=== PATIENT | male | born 1995 | race Caucasian/White ===

== ENCOUNTER 2016-09-24 22:52 | Emergency (ER) | payer MEDICAID, OTHER ==
[~2016-09-24] VITALS: Ht 165.1 cm; Wt 63.5 kg
[~2016-09-24 22:52] MED LIST: AZIT250T6 PO; HYDR-1189 PO
[2016-09-24 23:39] VITALS: BP_SYST 122
--- NOTE | 2016-09-25 01:24 | NUR ---
Patient left without being seen. No further treatment provided
--- NOTE | 2016-09-25 01:24 | NUR ---
CALLED IN, NO ANSWER
== END 2016-09-25 01:24 | disposition left against medical advice (07) ==
LOC: SED 22:52
DX: L29.9 Pruritus, unspecified (principal); Z53.21 Procedure and treatment not carried out due to patient leaving prior to being seen by health care provider

== ENCOUNTER 2018-10-02 06:55 | Emergency (ER) | payer MEDICAID ==
[~2018-10-02] VITALS: Ht 165.1 cm; Wt 67.1 kg
[~2018-10-02 06:55] MED LIST changes: +AZIT-62 PO; -AZIT250T6 PO
[2018-10-02 07:17] VITALS: BP_SYST 121
--- NOTE | 2018-10-02 07:20 | NUR ---
Patient to ER bed 7 to gown for evaluation. Side rails up. Report given to BEBA Brushresistor winder.
--- NOTE | 2018-10-02 07:35 | NUR ---
PT LYING ON BED PLYING CELLPHONE, CO SORENESS ON RIGHT ARMPIT AFTER WORKING OUT. NO FURTHER CO. AO X 3. NO ACUTE DISTRESS.
--- NOTE | 2018-10-02 07:40 | NUR ---
ER at bedside examining patient.
[2018-10-02 08:25] LABS: BASOPHILS # (AUTO) 0.1 K/uL (0.0-0.2); BASOPHILS % (AUTO) 0.9 % (0.0-2.0); EOSINOPHILS % (AUTO) 15.4 % (0.0-4.0); HEMATOCRIT 45.5 % (36-54); HEMOGLOBIN 15.8 g/dL (14.0-18.0); LYMPHOCYTES # (AUTO) 1.6 K/uL (1.0-5.5); MEAN CORPUSCULAR HEMOGLOBIN 32 pg (27-31); MEAN CORPUSCULAR HGB CONC 35 % (32-36); MEAN CORPUSCULAR VOLUME 92 fL (79.0-98.0); MONOCYTES # (AUTO) 0.5 K/uL (0.0-1.0); MONOCYTES % (AUTO) 7.9 % (1.7-9.3); NEUTROPHILS # (AUTO) 3.4 K/uL (1.8-7.7); NEUTROPHILS % (AUTO) 51.8 % (40.0-70.0); PLATELET COUNT (AUTO) 131 K/uL (130-430); RED BLOOD CELL COUNT(AUTO) 4.97 MIL/uL (4.2-6.2); RED CELL DISTRIBUTION WIDTH 12.1 % (9.0-15.0); WHITE BLOOD COUNT (AUTO) 6.6 K/uL (4.8-10.8)
[2018-10-02 08:49] LABS: ANION GAP 7 (5-15); CALCIUM 9.2 mg/dL (8.4-11.0); CHLORIDE 103 mmol/L (98-107); CREATININE 0.92 mg/dL (0.55-1.30); GLUCOSE 101 mg/dL (70-99); POTASSIUM 3.7 mmol/L (3.5-5.1); SODIUM SERUM 137 mmol/L (136-145); UREA NITROGEN, BLOOD 21 mg/dL (8-21)
[2018-10-02 08:53] LABS: GFR AFRICAN AMERICAN 131 mL/min (>90)
[2018-10-02 08:55] LABS: ALANINE AMINOTRANSFERASE 35 U/L (12-78); ALBUMIN 3.8 g/dL (3.4-4.8); ASPARTATE AMINOTRANSFERASE 28 U/L (10-37); TOTAL BILIRUBIN 0.6 mg/dL (0.0-1.0)
[2018-10-02 08:56] LABS: C-REACTIVE PROTEIN QUANT < 0.2 mg/dL (0-0.5)
--- NOTE | 2018-10-02 09:13 | NUR ---
PT WAS EXAMINED BY DR. BUCIO THEN DECIDED TO DC HOME. Patient given written and verbal discharge instructions and verbalizes understanding. ER MD discussed with patient the results and treatment provided. Patient in stable condition. ID arm band removed. IV catheter removed intact and dressing applied, no active bleeding. Rx of MOTRIN given. Patient educated on pain management and to follow up with PMD. Pain Scale 0. Opportunity for questions provided and answered. Medication side effect fact sheet provided.
[2018-10-02 09:15] VITALS: BP_SYST 121
== END 2018-10-02 09:15 | disposition home or self-care (01) ==
LOC: SED 06:55
DX: S43.401A Unspecified sprain of right shoulder joint, initial encounter (principal); Z88.1 Allergy status to other antibiotic agents; Z79.899 Other long term (current) drug therapy; X50.0XXA Overexertion from strenuous movement or load, initial encounter; Y93.89 Activity, other specified; Y92.89 Other specified places as the place of occurrence of the external cause; Y99.8 Other external cause status
CPT/HCPCS: 36415; 80053; 85025; 86140; 99283

== ENCOUNTER 2019-09-25 22:03 | Emergency (ER) | payer MEDICAID ==
[~2019-09-25] VITALS: Ht 165.1 cm; Wt 70.3 kg
[2019-09-25 22:05] VITALS: BP_SYST 106
[2019-09-25] MEDS ORDERED: DIPH-TET-PERTUS Vaccine 0.5 ML VIAL (ADACEL) I.M. ONE (22:15)
[2019-09-25] MEDS ORDERED: cefTRIAXone 1 GM VIAL IM ONE (22:15)
[2019-09-25 22:29] VITALS: BP_SYST 106
[2019-09-25] MEDS ORDERED: BACITRACIN 1 GM OINT TP ONE (22:37)
== END 2019-09-25 22:05 | disposition home or self-care (01) ==
LOC: SED 22:03
DX: S61.451A Open bite of right hand, initial encounter (principal); Z88.1 Allergy status to other antibiotic agents; W54.0XXA Bitten by dog, initial encounter; Y93.89 Activity, other specified; Y92.89 Other specified places as the place of occurrence of the external cause; Y99.8 Other external cause status
CPT/HCPCS: 90471; 90715; 96372; 99284; J0696

== ENCOUNTER 2019-09-27 15:58 | Emergency (ER) | payer MEDICAID ==
[~2019-09-27] VITALS: Ht 165.1 cm; Wt 72.6 kg
[2019-09-27 16:29] VITALS: BP_SYST 128
[2019-09-27] MEDS ORDERED: NACL 0.9% 1,000 ML IV ONE (16:58)
[2019-09-27] MEDS ORDERED: KETOROLAC TROMETHAMINE 30 MG VIAL IVP ONE (17:00)
[2019-09-27] MEDS ORDERED: VANCOMYCIN HCL 1,000 MG in NS 250 ML IV ONE (17:00)
[2019-09-27] MEDS ORDERED: LEVOFLOXACIN 500 MG TABLET PO ONE (17:00)
[2019-09-27 17:32] LABS: EOSINOPHILS # (AUTO) 0.3 K/uL (0.0-0.4); EOSINOPHILS % (AUTO) 6.1 % (0.0-4.0); HEMATOCRIT 48.8 % (36-54); HEMOGLOBIN 16.8 g/dL (14.0-18.0); LYMPHOCYTES # (AUTO) 1.1 K/uL (1.0-5.5); LYMPHOCYTES % (AUTO) 24.5 % (20.5-51.5); MEAN CORPUSCULAR HEMOGLOBIN 32 pg (27-31); MEAN CORPUSCULAR HGB CONC 34 % (32-36); MEAN CORPUSCULAR VOLUME 92 fL (79.0-98.0); MONOCYTES # (AUTO) 0.5 K/uL (0.0-1.0); MONOCYTES % (AUTO) 9.9 % (1.7-9.3); NEUTROPHILS # (AUTO) 2.7 K/uL (1.8-7.7); NEUTROPHILS % (AUTO) 58.5 % (40.0-70.0); PLATELET COUNT (AUTO) 147 K/uL (130-430); RED BLOOD CELL COUNT(AUTO) 5.32 MIL/uL (4.2-6.2); RED CELL DISTRIBUTION WIDTH 12.2 % (9.0-15.0); WHITE BLOOD COUNT (AUTO) 4.6 K/uL (4.8-10.8)
[2019-09-27] MEDS ORDERED: VANCOMYCIN HCL 1000 MG/VIAL IV ONE (17:33)
[2019-09-27 18:01] LABS: CALCIUM 10.1 mg/dL (8.4-11.0); CREATININE 1.1 mg/dL (0.55-1.30); POTASSIUM 4.7 mmol/L (3.5-5.1); TOTAL BILIRUBIN 0.5 mg/dL (0.0-1.0)
[2019-09-27 18:02] LABS: ALBUMIN 4.2 g/dL (3.4-4.8)
[2019-09-27 20:00] VITALS: BP_SYST 134
== END 2019-09-27 20:00 | disposition home or self-care (01) ==
LOC: SED 15:58
DX: L03.113 Cellulitis of right upper limb (principal); Z88.1 Allergy status to other antibiotic agents; Z79.899 Other long term (current) drug therapy
CPT/HCPCS: 36415; 80053; 85025; 87040; 96365; 96366; 96375; 99284; J1885; J3370; J7030

== ENCOUNTER 2020-05-25 20:33 | Emergency (ER) | payer MEDICAID ==
[~2020-05-25] VITALS: Ht 165.1 cm; Wt 71.7 kg
[~2020-05-25 20:33] MED LIST changes: -HYDR-1189 PO; +HYDR-3919 PO
[2020-05-25 21:00] VITALS: BP_SYST 128
[2020-05-25 22:40] VITALS: BP_SYST 128
== END 2020-05-25 22:40 | disposition home or self-care (01) ==
LOC: SED 20:33
DX: H10.213 Acute toxic conjunctivitis, bilateral (principal)
CPT/HCPCS: 99282

== ENCOUNTER 2020-11-18 18:47 | Emergency (ER) | payer MEDICAID, OTHER ==
[~2020-11-18] VITALS: Ht 165.1 cm; Wt 71.7 kg
[2020-11-18 18:58] VITALS: BP_SYST 125
--- NOTE | 2020-11-18 19:01 | NUR ---
Patient to ER bed 7 to gown for evaluation. Side rails up.
--- NOTE | 2020-11-18 19:02 | NUR ---
ER at bedside examining patient.
--- NOTE | 2020-11-18 19:05 | NUR ---
PT ARRIVES FROM HOME W/ VOMITING, ABD BLOATING, DIARRHEA, AND 7/10 ABD PAIN SINCE 0500. PT STATES THAT HE ATE [employer] LAST NIGHT AND FEELS IF HE GOT FOOD POISONING. CURRENT TEMPORAL TEMP IS 100.2.
--- NOTE | 2020-11-18 19:09 | NUR ---
CARE ENDORSED TO ROBERT YODER
--- NOTE | 2020-11-18 19:10 | NUR ---
Received endorsement from day shift, [id number], breathing spontaneously at room air, not in distress noted. vital signs stable
[2020-11-18] MEDS ORDERED: IBUPROFEN 800 MG TABLET PO ONE (19:15)
[2020-11-18] MEDS ORDERED: ONDANSETRON 4 MG ODT TAB PO ONE (19:15)
--- NOTE | 2020-11-18 19:20 | NUR ---
Medication given as ordered, health teaching provided and verbalized understanding
--- NOTE | 2020-11-18 19:41 | NUR ---
Patient transported to radiology via wheelchair in stable condition, accompanied by [employer] architect.
[2020-11-18 19:46] LABS: EOSINOPHILS % (AUTO) 0.2 % (0.0-4.0); HEMATOCRIT 47.4 % (36-54); NEUTROPHILS # (AUTO) 5.6 K/uL (1.8-7.7); WHITE BLOOD COUNT (AUTO) 6.3 K/uL (4.8-10.8)
[2020-11-18 19:52] LABS: BASOPHILS % (AUTO) 0.1 % (0.0-2.0); HEMOGLOBIN 16.8 g/dL (14.0-18.0); LYMPHOCYTES # (AUTO) 0.3 K/uL (1.0-5.5); LYMPHOCYTES % (AUTO) 4.8 % (20.5-51.5); MEAN CORPUSCULAR HEMOGLOBIN 32 pg (27-31); MEAN CORPUSCULAR HGB CONC 35 % (32-36); MEAN CORPUSCULAR VOLUME 91 fL (79.0-98.0); MONOCYTES # (AUTO) 0.4 K/uL (0.0-1.0); MONOCYTES % (AUTO) 6.4 % (1.7-9.3); NEUTROPHILS % (AUTO) 88.5 % (40.0-70.0); PLATELET COUNT (AUTO) 110 K/uL (130-430); RED BLOOD CELL COUNT(AUTO) 5.21 MIL/uL (4.2-6.2); RED CELL DISTRIBUTION WIDTH 12.2 % (9.0-15.0)
--- NOTE | 2020-11-18 19:52 | NUR ---
Returned from radiology, back to [facility].
[2020-11-18 19:56] LABS: ANION GAP 10 (5-15); CALCIUM 8.5 mg/dL (8.4-11.0); CHLORIDE 99 mmol/L (98-107); CREATININE 1.33 mg/dL (0.55-1.30); GLUCOSE 114 mg/dL (70-99); POTASSIUM 3.5 mmol/L (3.5-5.1); SODIUM SERUM 136 mmol/L (136-145); UREA NITROGEN, BLOOD 17 mg/dL (8-21)
[2020-11-18 19:59] LABS: INR 1.2 (0.80-1.20); PROTHROMBIN TIME 12.2 SECS (9.5-12.5)
[2020-11-18 20:01] LABS: ALANINE AMINOTRANSFERASE 46 U/L (12-78); ALBUMIN 3.6 g/dL (3.4-4.8); AMYLASE 40 U/L (0-100); ASPARTATE AMINOTRANSFERASE 24 U/L (10-37); GFR AFRICAN AMERICAN 84 mL/min (>90); LIPASE 51 U/L (73-393); TOTAL BILIRUBIN 0.9 mg/dL (0.0-1.0)
[2020-11-18 20:17] LABS: C-REACTIVE PROTEIN QUANT 3.8 mg/dL (0-0.5)
--- NOTE | 2020-11-18 20:29 | NUR ---
Re-assesed by Dr. Tineo, for discharge
[2020-11-18] MEDS ORDERED: IBUP-1971 PO (20:30)
[2020-11-18] MEDS ORDERED: ONDA-8 TL (20:30)
[2020-11-18 20:42] VITALS: BP_SYST 122
--- NOTE | 2020-11-18 20:42 | NUR ---
Patient given written and verbal discharge instructions and verbalizes understanding. DR. RUPINDER HADLEY MD discussed with patient the results and treatment provided. Patient in stable condition. ID arm band removed. Rx of MOTRIN, ZOFRAN given. Patient educated on pain management and to follow up with PMD. Pain Scale 0/10 Opportunity for questions provided and answered. Medication side effect fact sheet provided.
[2020-11-18 22:11] LABS: ACETONE, SERUM NEGATIVE (NEGATIVE)
== END 2020-11-18 20:42 | disposition home or self-care (01) ==
LOC: SED 18:47
DX: A05.9 Bacterial foodborne intoxication, unspecified (principal); Z88.1 Allergy status to other antibiotic agents; Z79.899 Other long term (current) drug therapy
CPT/HCPCS: 36415; 74176; 76376; 80053; 82009; 82150; 83605; 83690; 85025; 85610; 85730; 86140; 99284; Q0162